=== PATIENT | male | born 1995 | race Caucasian/White ===

== ENCOUNTER → 2018-08-11 | Outpatient (CLI) | payer OTHER | END | disposition home or self-care (01) | LOC: LAB 14:52 | PROVIDERS: ATTEND Physician Assistant Medical | DX: Z20.1 Contact with and (suspected) exposure to tuberculosis (principal); Z20.5 Contact with and (suspected) exposure to viral hepatitis | CPT/HCPCS: 36415; 86480; 87340 ==

== ENCOUNTER 2018-08-19 13:18 | Outpatient (CLI) | payer OTHER | END 2018-08-19 23:59 | disposition home or self-care (01) | LOC: LAB 13:18 | PROVIDERS: ATTEND Physician Assistant Medical | DX: Z20.5 Contact with and (suspected) exposure to viral hepatitis (principal) | CPT/HCPCS: 36415; 86706 ==